=== PATIENT | male | born 1975 | race Caucasian/White ===

== ENCOUNTER 2023-03-20 07:13 | Emergency (ER) | payer OTHER, SELFPAY ==
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
[2023-03-20 07:25] VITALS: BP 140/88; PULSE 110; O2SAT 99
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
[2023-03-20 08:04] VITALS: BP 133/94; PULSE 103; RESP 18; TEMP 36.8; O2SAT 92; BMI 37.6
[2023-03-20 08:12] VITALS: BP 133/94; PULSE 103; RESP 18; TEMP 36.8; O2SAT 92
[2023-03-20 11:40] LABS: MANUAL DIFF FLAG NO
[2023-03-20 11:41] LABS: Basophils Percent Auto 0.3 % (0-2); Eosinophils Absolute Auto 0.1 X10*3/uL (0.0-0.4); Eosinophils Percent Auto 0.6 % (0-4); Hematocrit 49.8 % (42.0-52.0); Hemoglobin 15.6 g/dl (14.0-18.0); Imm Gran Abs Auto 0.05 X10*3/uL (0.00-0.03); Imm Gran Pct Auto 0.4 % (0.0-0.4); Mean Corpuscular HGB Conc 31.3 g/dl (31.0-36.0); Mean Corpuscular Hemoglobin 26.8 pg (27.0-33.0); Mean Corpuscular Volume 85.6 fL (80.0-98.0); Mean Platelet Volume 9.6 fL (9.4-12.4); Monocytes Absolute Auto 0.8 X10*3/uL (0.1-1.2); Monocytes Percent Auto 7.1 % (2-11); Neutrophils Absolute Auto 8.8 x10*3/uL (2.0-8.3); Neutrophils Percent Auto 74.6 % (45-73); Platelet Count 290 X10*3/uL (160-400); Red Blood Count 5.82 X10*6/uL (4.60-5.80); Red Cell Distribution Width 14.6 % (11.0-16.0); White Blood Count 11.8 X10*3/uL (4.8-10.8)
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
[2023-03-20 11:47] LABS: INTERNATIONAL NORM RATIO 0.9 (0.9-1.1)
[2023-03-20 11:49] LABS: Partial Thromboplastin Time 29.5 SEC (26.0-36.4)
[2023-03-20 11:57] LABS: IDNOW Serial# BCCEAD1C
[2023-03-20 11:58] LABS: COVID-19 Test Negative (Negative)
--- NOTE | 2023-03-20 11:58 | PC.NURSE ---
Assumed care of patient at 1100, patient resting on stretcher offering no complaints to this RN. Pt denies any major pain, stating I have daily hip, knee and back pain so this is nothing new . Patient has 20g Iv to RAC at this time, plan for [place], patient aware of plan of care. Patient respirations are equal and unlabored, skin is pwd, patient has bruising to left neck and lower abdomen at this time.
[2023-03-20] MEDS: 0.9 % Sodium Chloride 1,000 ML 999 ML IV (12:10)
[2023-03-20 12:11] LABS: Alanine Aminotransferase 92 U/L (0-40); Albumin Level 4.3 g/dL (3.5-5.0); Alkaline Phosphatase 67 U/L (39-117); Anion Gap 16 (12-20); Aspartate Amino Transferase 88 U/L (5-37); Bilirubin Total 0.5 mg/dL (0.0-1.0); Blood Urea Nitrogen 16 mg/dL (9-16); Calcium 9.6 mg/dL (8.4-10.2); Carbon Dioxide 30 mmol/L (22-29); Chloride 98 mmol/L (96-108); Creatinine Clr Calc Pharmacy 155.1; Estimated Glomerular Filt Rate > 60; Glucose Random 187 mg/dL (60-115); Potassium 4.4 mmol/L (3.3-5.1); Sodium 140 mmol/L (135-145); Total Protein 7.6 g/dL (6.5-8.0)
[2023-03-20] MEDS: iohexoL 350 MG/ML 100 ML INFUS..BTL IV (13:56)
[2023-03-20 15:42] VITALS: BP 142/82; PULSE 72; RESP 15; TEMP 37.2; O2SAT 96
== END 2023-03-20 16:40 | disposition home or self-care (01) ==
PROVIDERS: Physician Assistant; Emergency Provider Emergency Medicine; PCP Internal Medicine
DX: S80.02XA Contusion of left knee, initial encounter (principal); S20.211A Contusion of right front wall of thorax, initial encounter; S30.1XXA Contusion of abdominal wall, initial encounter; V49.9XXA Car occupant (driver) (passenger) injured in unspecified traffic accident, initial encounter; Y93.9 Activity, unspecified; Y92.410 Unspecified street and highway as the place of occurrence of the external cause; Y99.9 Unspecified external cause status; R07.9 Chest pain, unspecified; M25.562 Pain in left knee; I10 Essential (primary) hypertension; E11.9 Type 2 diabetes mellitus without complications; R10.30 Lower abdominal pain, unspecified
CPT/HCPCS: 70496; 70498; 71260; 74177; 80053; 85025; 85610; 85730; 87635; 93005; 96360; 99285; Q9967

== ENCOUNTER → 2023-03-20 07:30 | Outpatient (BNV) | payer OTHER, SELFPAY | PROVIDERS: Emergency Provider Emergency Medicine; PCP Internal Medicine; Visit Provider Internal Medicine Cardiovascular Disease | DX: R00.0 Tachycardia, unspecified (principal); R07.9 Chest pain, unspecified | CPT/HCPCS: 93010 ==